=== PATIENT | male | born 2000 | race Two or more races ===

== ENCOUNTER 2020-10-07 16:33 | Outpatient (REF) | payer MEDICAID, SELFPAY | END 2020-10-07 16:34 | disposition home or self-care (01) | LOC: HO.LAB 16:33 | PROVIDERS: Visit Provider Internal Medicine | DX: Z20.822 Contact with and (suspected) exposure to COVID-19 (principal) | CPT/HCPCS: 36415; C9803; U0003 ==

== ENCOUNTER 2022-04-23 17:28 | Emergency (ER) | payer MEDICAID, SELFPAY ==
[2022-04-23 17:48] VITALS: BP 120/66; PULSE 72; RESP 18; TEMP 36.4; O2SAT 96; BMI 22.1
== END 2022-04-23 20:16 | disposition left against medical advice (07) ==
PROVIDERS: Emergency Provider Emergency Medicine
DX: Z20.2 Contact with and (suspected) exposure to infections with a predominantly sexual mode of transmission (principal)
CPT/HCPCS: 99281

== ENCOUNTER 2023-03-20 15:45 | Emergency (ER) | payer MEDICAID, SELFPAY ==
--- NOTE | 2023-03-20 16:06 | ED.DENTAL ---
HPI - Dental/Oral General Chief complaint: Dental/Oral Stated complaint: abcess in mouth Time Seen by Provider: 03/20/23 16:11 Source: patient, RN notes reviewed and old records reviewed Mode of arrival: ambulatory History of Present Illness HPI Narrative: 22yo M w/no sig PMHx c/o right sided dental pain x1 year worsening yesterday w/ assoc right-sided lower facial swelling. Admits took 1 pill of father's Amoxicillin yesterday. Admits was supposed to follow-up with dentist for root canal years ago however never followed up. Denies ear pain, sore throat, drainage from area, fever/chills, difficulty or inability to swallow MD Complaint: tooth pain Related Data Previous Rx's Medication Instructions Recorded amoxicillin 875 mg-potassium 1 tab PO BID 7 days #14 tabs 03/20/23 clavulanate 125 mg tablet Allergies Allergy/AdvReac Type Severity Reaction Status Date / Time cat dander [CAT] Allergy Unknown UNKNOWN Unverified 03/20/23 16:06 pollen extracts [POLLEN] Allergy Unknown UNKNOWN Unverified 03/20/23 16:06 Review of Systems Review of Systems: Constitutional: No Fever, No Chills ENT/Mouth: +dental pain, No Ear Pain, No Nasal Congestion, No sore throat, No Rhinorrhea, No Swallowing Difficulty Cardiovascular: No Chest Pain, No SOB Respiratory: No Cough, No Sputum, No Wheezing Gastrointestinal: No Nausea, No Vomiting, No Abdominal pain Skin: No Skin Lesions, No rash Neuro: No Weakness, No Numbness, No Paresthesias Yes all other systems are reviewed and are negative Constitutional: Constitutional: Reports as per [facility] Past Medical History Attestation statement: The following information was validated with the patient. Source: old records reviewed Physical Exam Vital Signs: Vital Signs: Last Vital Signs Temp 98.4 F 03/20/23 16:07 Pulse 103 H 03/20/23 16:07 Resp 16 03/20/23 16:07 BP 136/76 03/20/23 16:07 Pulse Ox 99 03/20/23 16:07 O2 Del Method Room Air 03/20/23 16:07 BMI result Body Mass Index 22.4 Const: General: cooperative, healthy appearing and no acute distress Orientation/consciousness: patient oriented x3 Limitations: no limitations HEENT: Other: + mild right-sided lower mandible swelling. Poor dentition. Right lower molar cracked w/small pinpoint area of appreciable gingival fluctuance. No pointing. No drainage. No erythema or warmth Head: Yes normal to inspection and Yes atraumatic Ears: hearing grossly normal bilaterally, external ears normal and mastoids normal General nose exam: Normal external nose present Face and sinus: Yes normal facial exam Mouth: Normal oral and palatal mucosa present Eyes: General: appearance normal, both eyes and all related structures EOM: EOMs intact bilaterally Neck: Neck: Yes normal visual inspection, Yes no meningeal signs, Yes supple and No anterior neck swelling Resp: Effort & Inspection: normal respiratory effort, no respiratory distress and no stridor Cardio: Rate: regular rate Skin: Rashes: no rashes Wounds: no wounds Neuro: General: patient oriented x3, tone normal and no meningeal signs Gait exam (Neuro): Normal gait present Extrem: General: Yes normal to inspection Medical Decision Making Medical Decision Making MDM Narrative: 22yo M w/no sig PMHx c/o right sided dental pain x1 year worsening yesterday w/ assoc right-sided lower facial swelling. Admits took 1 pill of father's Amoxicillin yesterday. On exam mildly tachycardic likely from discomfort, NAD, nontoxic appearing, physical exam as above. Concern for gingival/dental abscess vs edema. No evidence of CHIEF VENDOR QUALITY, low suspicion for strep pharyngitis, mastoiditis, or otitis. Offered I & D however patient would prefer to defer procedure & trial antibiotics and dentistry follow-up Results discussed with patient including worrisome signs and symptoms and strict return precautions, and when to return to the emergency department. They verbalized understanding and feel safe for discharge at this time. Differential Diagnosis Differential Diagnoses: The differential diagnosis associated with the presentation includes As above External Record Review External record reviewed: Inpatient record, Office record, Outpatient record, Prior outpatient labs, Prior outpatient radiology, Primary care record and Outside ED record Tests considered The following testing was considered but not selected: As above Prescription Management I considered prescription management with: Pain Medication and Antibiotic Social Determinants Patient?s care significantly limited by Social Determinants of Health including: Problems related to primary support group Discharge Plan Discharge Clinical Impression: Gingival abscess Patient Disposition: Home, Self-Care Instructions: Periodontal Disease (DC) Additional Instructions: Please follow-up with a dentist Augmentin is antibiotic please take as prescribed If symptoms persist or worsen you develop persistent or worsening facial swelling, drainage from your mouth or fever return to the ED Prescriptions: New amoxicillin-pot clavulanate 875-125 mg tablet 1 tab PO BID 7 Days Qty: 14 0RF Referrals: Brody Mccarty [Dentist] - Antoine Napoles DMD [Dentist] - Jose Angel Vides DMD [Dentist] -
[2023-03-20 16:07] VITALS: BP 136/76; PULSE 103; RESP 16; TEMP 36.9; O2SAT 99; BMI 22.4
== END 2023-03-20 16:21 | disposition home or self-care (01) ==
LOC: HO.ED 16:21
PROVIDERS: Emergency Provider Emergency Medicine Emergency Medical Services
DX: K05.20 Aggressive periodontitis, unspecified (principal); K12.2 Cellulitis and abscess of mouth; K08.89 Other specified disorders of teeth and supporting structures
CPT/HCPCS: 99282; 99283

== ENCOUNTER → 2025-04-26 08:04 | Outpatient (BNV) | payer SELFPAY | PROVIDERS: Emergency Provider Emergency Medicine; Visit Provider Radiology Vascular & Interventional Radiology | DX: M79.641 Pain in right hand (principal); M25.531 Pain in right wrist | CPT/HCPCS: 73110; 73130 ==

== ENCOUNTER 2025-04-26 08:46 | Emergency (ER) | payer SELFPAY ==
--- NOTE | ~2025-04-26 | XR_ITS ---
CLINICAL HISTORY: pain s p fall 4 view right wrist Comparison: None provided Findings: Bones intact. No dislocations. No significant loss of joint space, osteophyte, or erosions. No radiopaque foreign body. IMPRESSION: 1. No acute findings This document has been electronically signed by: Boubacar Barksdale MD on 04/26/2025 10:17:53
--- NOTE | ~2025-04-26 | XR_ITS ---
CLINICAL HISTORY: pain s p fall 3 view right hand Comparison: None provided Findings: No fractures or dislocations. No significant arthritic change. No erosions. No radiopaque foreign body. IMPRESSION: 1. No acute findings This document has been electronically signed by: Boubacar Barksdale MD on 04/26/2025 10:18:36
[2025-04-26 08:50] VITALS: BP 110/56; PULSE 60; RESP 18; TEMP 36.4; O2SAT 96; BMI 21.9
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
[2025-04-26 10:36] VITALS: BP 115/71; PULSE 55; RESP 16; O2SAT 99
[2025-04-26] MEDS: Diphth,Pertus(ACell),Tet Adult 0.5 ML SYRINGE IM (11:08)
[2025-04-26 11:12] VITALS: BP 115/71; PULSE 55; RESP 16; TEMP 36.4; O2SAT 99
== END 2025-04-26 11:13 | disposition home or self-care (01) ==
PROVIDERS: Emergency Provider Emergency Medicine
DX: S63.501A Unspecified sprain of right wrist, initial encounter (principal); S60.811A Abrasion of right wrist, initial encounter; M25.531 Pain in right wrist; X50.1XXA Overexertion from prolonged static or awkward postures, initial encounter; V19.9XXA Pedal cyclist (driver) (passenger) injured in unspecified traffic accident, initial encounter; Y93.9 Activity, unspecified; Y92.410 Unspecified street and highway as the place of occurrence of the external cause; Y99.8 Other external cause status; Z23 Encounter for immunization
CPT/HCPCS: 73110; 73130; 90471; 90715; 99284